=== PATIENT | female | born 1965 | race Caucasian/White ===

== ENCOUNTER → 2017-02-07 | Outpatient (CLI) | payer OTHER ==
[2016-02-28 16:00] VITALS: BP 143/80
[~2017-02-07] MED LIST: LISI-338 PO; LISI1TAB7 PO
--- NOTE | 2017-02-11 19:58 | KCIC ---
Bilateral digital screening mammograms: Reason for examination: Routine screening. Comparison is made to previous study dated 02/28/2009. The skin and nipples show no abnormalities. No abnormal lymph nodes are seen. The breast parenchyma is predominantly fatty. (Breast density: Category A.) There are no dominant masses, suspicious calcifications or architectural distortions. Impression: No evidence of malignancy. Recommend routine screening. BI-RADS Category 1: Negative. "Our facility is accredited by the [employer] Mammography Program." This patient's information has been entered into a reminder system for the patient to be notified with the results of her examination and a target date for the next mammogram. Electronically signed by: Kenia King MD (02/11/2017 7:55 PM)
== END | disposition home or self-care (01) ==
LOC: KCIC MAMMO 08:50
PROVIDERS: ATTEND Nurse Practitioner Family
DX: Z12.31 Encounter for screening mammogram for malignant neoplasm of breast (principal)
CPT/HCPCS: G0202; 77067

== ENCOUNTER → 2018-12-17 | Outpatient (CLI) | payer OTHER ==
[2016-02-28 16:00] VITALS: BP 143/80
--- NOTE | 2018-12-17 16:01 | KCIC ---
EXAM: Right calcaneus, 2 views. HISTORY: Nontraumatic pain. COMPARISON: None. FINDINGS: 2 views of the right calcaneus are obtained. There is no fracture, dislocation or subluxation. No lytic coarse chronic osseous lesion is seen. There is a tiny accessory ossicle along the lateral mid foot. IMPRESSION: No acute osseous finding. Electronically signed by: Vivienne Santamaria MD (12/17/2018 3:58 PM) [id number]
== END | disposition home or self-care (01) ==
LOC: KCIC 15:34
PROVIDERS: ATTEND Nurse Practitioner Family
DX: M79.671 Pain in right foot (principal)
CPT/HCPCS: 73650

== ENCOUNTER 2020-03-31 21:53 | Emergency (ER) | payer SELFPAY ==
[~2020-03-31 21:53] MED LIST changes: +LISI1TAB20 PO; -LISI1TAB7 PO
[2020-03-31 22:10] VITALS: BP 113/71
[2020-04-01] MEDS ORDERED: CETI10TA74 PO (13:38)
[2020-04-01] MEDS ORDERED: SIMV20TA18 PO (13:38)
== END 2020-03-31 23:30 | disposition left against medical advice (07) ==
LOC: ER 21:53
DX: R53.1 Weakness (principal); Z53.21 Procedure and treatment not carried out due to patient leaving prior to being seen by health care provider

== ENCOUNTER 2020-04-01 07:24 | Observation (INO) | payer SELFPAY ==
[~2020-04-01] VITALS: Ht 160 cm; Wt 60.9 kg
[2020-04-01] MEDS ORDERED: IV NORMAL SALINE 1000ML BAG 1,000 ML IV ONE (08:00)
[2020-04-01] MEDS ORDERED: ONDANSETRON PF 4 MG/2 ML VIAL. IVP ONE (08:00)
[2020-04-01 08:02] LABS: BASO # 0.1 x10^3/uL (0.0-0.2); BASO % 1 % (0-3); EOS % 0 % (0-3); HEMATOCRIT 39.7 % (36.0-47.0); HEMOGLOBIN 13.7 g/dL (12.0-15.5); LYMPH # 1.2 x10^3/uL (1.0-4.8); LYMPH % 10 % (24-48); MEAN CORPUSCULAR HEMOGLOBIN 33 pg (25-35); MEAN CORPUSCULAR HGB CONC 34 g/dL (31-37); MEAN CORPUSCULAR VOLUME 95 fL (79-100); MONO # 0.5 x10^3/uL (0.0-1.1); MONO % 4 % (0-9); NEUT # 10.4 x10^3/uL (1.8-7.7); NEUT % 86 % (31-73); PLATELET COUNT 275 x10^3/uL (140-400); RED BLOOD COUNT 4.16 x10^6/uL (3.50-5.40); RED CELL DISTRIBUTION WIDTH 14.4 % (11.5-14.5); WHITE BLOOD COUNT 12.1 x10^3/uL (4.0-11.0)
[2020-04-01 08:09] LABS: CALCIUM 10.1 mg/dL (8.5-10.1); CREATININE 1.2 mg/dL (0.6-1.0); GFR 46.5; POTASSIUM 4.4 mmol/L (3.5-5.1)
--- NOTE | 2020-04-01 08:21 | PHYS DOC ---
Past Medical History Past Medical History: Cancer, Hypertension, Other Additional Past Medical Histor: hyperlipidemia Past Surgical History: Cancer Surgery, Hysterectomy, Tonsillectomy Smoking Status: Current Every Day Smoker Alcohol Use: Heavy Drug Use: None General Adult EDM: Chief Complaint: DIZZY/LIGHT HEADED HPI: HPI: Patient is a 54-year-old female who presents the emergency room complaining of vomiting and lightheadedness. Patient states that this is happened previously and she believes that she just because she does not take very good care of herself. She has had low electrolytes before. She started feeling lightheaded 2 days ago. She did have a fall yesterday and has some mild back pain. Denies any other injury. She has been having vomiting since yesterday afternoon. She is not had any diarrhea, constipation, abdominal pain, chest pain, shortness of breath. She does drink most days but is unable to tell me exactly how much she typically drinks. Review of Systems: Review of Systems: General: Denies fever, chills, sweats, fatigue Eyes: Denies drainage, blurred vision, eye redness HENT: Denies rhinorrhea, sore throat, earache Respiratory: Denies cough, shortness of breath, wheezing Cardiac: Denies edema, palpitations, chest pain GI: Denies abdominal pain.reports nausea, vomiting MSK: Denies neck pain reports back pain Skin: Denies rash, jaundice Neuro: Denies headache, dizziness reports lightheadedness Psychiatric: Denies SI/HI Heart Score: Risk Factors: Risk Factors: DM, Current or recent (<one month) smoker, HTN, HLP, family history of CAD, obesity. Risk Scores: Score 0 - 3: 2.5% MACE over next 6 weeks - Discharge Home Score 4 - 6: 20.3% MACE over next 6 weeks - Admit for Clinical Observation Score 7 - 10: 72.7% MACE over next 6 weeks - Early Invasive Strategies Current Medications: Current Medications Medications (Trade) Dose Ordered Sig/Valencia Start Time Stop Time Status Last Admin Dose Admin Ondansetron HCl (Zofran) 4 mg 1X ONCE 04/01/20 08:00 04/01/20 08:01 DC Sodium Chloride 1,000 ml @ 1,000 mls/hr 1X ONCE 04/01/20 08:00 04/01/20 08:59 Allergies: Allergies: Allergies Coded Allergies Type Severity Reaction Last Updated Verified No Known Drug Allergies 08/12/13 No Physical Exam: PE: General: Awake, alert, NAD. Well Nourished, well hydrated. Cooperative HEENT: Atraumatic, EOMI, PERRL, airway patent, moist oral mucosa Neck: Supple, trachea midline Respiratory: CTA bilaterally, normal effort, no wheezing/crackles CV: Tachycardia, no murmur, cap refill <2 GI: Soft, nondistended, nontender, no masses MSK: No obvious deformities Skin: Warm, dry, intact Neuro: A&O x3, speech NL, sensory and motor grossly intact, no focal deficits Psych: Normal affect, normal mood, not suicidal or homicidal Current Patient Data: Labs: Laboratory Tests Test 04/01/20 07:50 White Blood Count 12.1 x10^3/uL (4.0-11.0) H Red Blood Count 4.16 x10^6/uL (3.50-5.40) Hemoglobin 13.7 g/dL (12.0-15.5) Hematocrit 39.7 % (36.0-47.0) Mean Corpuscular Volume 95 fL (79-100) Mean Corpuscular Hemoglobin 33 pg (25-35) Mean Corpuscular Hemoglobin Concent 34 g/dL (31-37) Red Cell Distribution Width 14.4 % (11.5-14.5) Platelet Count 275 x10^3/uL (140-400) Neutrophils (%) (Auto) 86 % (31-73) H Lymphocytes (%) (Auto) 10 % (24-48) L Monocytes (%) (Auto) 4 % (0-9) Eosinophils (%) (Auto) 0 % (0-3) Basophils (%) (Auto) 1 % (0-3) Neutrophils # (Auto) 10.4 x10^3/uL (1.8-7.7) H Lymphocytes # (Auto) 1.2 x10^3/uL (1.0-4.8) Monocytes # (Auto) 0.5 x10^3/uL (0.0-1.1) Eosinophils # (Auto) 0.0 x10^3/uL (0.0-0.7) Basophils # (Auto) 0.1 x10^3/uL (0.0-0.2) Platelet Estimate Pending Sodium Level 123 mmol/L (136-145) L Potassium Level 4.4 mmol/L (3.5-5.1) Chloride Level 83 mmol/L (98-107) L Carbon Dioxide Level 20 mmol/L (21-32) L Anion Gap 20 (6-14) H Blood Urea Nitrogen 16 mg/dL (7-20) Creatinine 1.2 mg/dL (0.6-1.0) H Estimated GFR (Cockcroft-Gault) 46.5 Glucose Level 98 mg/dL (70-99) Calcium Level 10.1 mg/dL (8.5-10.1) Troponin I Quantitative < 0.017 ng/mL (0.000-0.055) Lipase 263 U/L (73-393) Laboratory Tests 04/01/20 07:50 Laboratory Tests 04/01/20 07:50 Vital Signs: Vital Signs Date Time Temp Pulse Resp B/P (MAP) Pulse Ox O2 Delivery O2 Flow Rate FiO2 04/01/20 07:35 98.2 119 16 142/74 (96) 98 Room Air 98.2 EKG: EKG: [] Radiology/Procedures: Radiology/Procedures: [] Course & Med Decision Making: Course & Med Decision Making Pertinent Labs and Imaging studies reviewed. (See chart for details) Patient is a 54-year-old female who presents to the emergency room with dizziness and vomiting. She has a history of this and it has been due to electrolyte issues in the past. Patient was started on fluids. CBC BMP, LFTs, magnesium, UA were ordered. Patient has multiple electrolyte abnormalities. EKG does not show any significant changes at this time. She will be admitted to the hospitalist for further care and evaluation. Work up was reviewed and was remarkable for hyponatremia, hypokalemia, hypomagnesia, transaminitis. At this time, patient would benefit from further work up and management. Patient is not stable for discharge at this time. Results, vitals, interventions, and plan was discussed with the patient. Patient was given opportunity to ask any questions and are in agreement with plan for admission. Patient was discussed with admitting physician and bridge admission orders were placed. Further care will be managed by inpatient team. Kemon Disclaimer: Sofya Disclaimer: This electronic medical record was generated, in whole or in part, using a voice recognition dictation system. Departure Departure Impression: Primary Impression: Hyponatremia Additional Impressions: Hypomagnesemia Hypochloremia Alcohol abuse Vomiting Tachycardia Disposition: ADMITTED INPATIENT Condition: IMPROVED Referrals: FELIX GIL APRN (PCP) Justicifation of Admission Dx: Justifications for Admission: Justification of Admission Dx: Yes LEOLA LARA MD Apr 01, 2020 08:21
[2020-04-01 08:48] LABS: ALBUMIN 3.9 g/dL (3.4-5.0); DIRECT BILIRUBIN 0.4 mg/dL (0.0-0.2); MAGNESIUM 1.3 mg/dL (1.8-2.4); TOTAL BILIRUBIN 0.8 mg/dL (0.2-1.0); TOTAL PROTEIN 8.5 g/dL (6.4-8.2)
--- NOTE | 2020-04-01 08:50 | RAD ---
Chest AP portable at 0829: Reason for examination: Dizzy. Comparison is made to previous study dated 02/27/2016. The heart size is normal. Mediastinum is unremarkable. Lung leyva are clear. No acute bony abnormalities are seen. Impression: No acute cardiopulmonary disease. Electronically signed by: Kenia King MD (04/01/2020 8:47 AM) [id number]
--- NOTE | 2020-04-01 10:01 | PDOC1 ---
History and Physical Date of Admission Date of Admission DATE: 04/01/20 TIME: 10:00 Identification/Chief Complaint Chief Complaint seen in er with alcohol withdrawal, dizziness , and electrolyte imbalance 54-year-old female who presents the emergency room complaining of vomiting and lightheadedness. Patient states that this is happened previously and she believes that she just because she does not take very good care of herself. started feeling lightheaded 2 days ago. fall yesterday and has some mild back pain. Denies any other injury. She has been having vomiting since yesterday She is not had any diarrhea, constipation, abdominal pain, chest pain, shortness of breath. She does drink most days heavily x 2 weeks due to a " break-up", usually 2 shots of whisky a day Past Medical History Past Medical History Past Medical History Past Medical History: Cancer, Hypertension, Other Additional Past Medical Histor: hyperlipidemia Past Surgical History: Cancer Surgery, Hysterectomy, Tonsillectomy Smoking Status: Current Every Day Smoker Alcohol Use: Heavy Drug Use: None FHX COPD Cardiovascular: HTN, Hyperlipidemia Psych: Depression Renal/: No pertinent hx Endocrine: No pertinent hx Past Surgical History Past Surgical History: Other Family History Family History: No Significant, High Cholestrol, Hypertension Social History Smoke: <1 pack per day ALCOHOL: heavy Drugs: None Current Problem List Problem List Problems Medical Problems: (1) Alcohol abuse Status: Acute (2) Hypochloremia Status: Acute (3) Hypomagnesemia Status: Acute (4) Hyponatremia Status: Acute (5) Tachycardia Status: Acute (6) Vomiting Status: Acute Current Medications Current Medications Current Medications Ondansetron HCl (Zofran) 4 mg 1X ONCE IVP Last administered on 04/01/20at 08:19; Start 04/01/20 at 08:00; Stop 04/01/20 at 08:01; Status DC Sodium Chloride 1,000 ml @ 1,000 mls/hr 1X ONCE IV Last administered on 04/01/20at 08:19; Start 04/01/20 at 08:00; Stop 04/01/20 at 08:59; Status DC Active Scripts Active Lisinopril 5 Mg Tablet 1 Tab PO DAILY Allergies Allergies: Coded Allergies: prednisone (Verified Adverse Reaction, Intermediate, AGITATION, 04/01/20) 'it like attacks my bones or something' ROS Review of System Review of Systems: Review of Systems: General: Denies fever, chills, sweats, fatigue Eyes: Denies drainage, blurred vision, eye redness HENT: Denies rhinorrhea, sore throat, earache Respiratory: Denies cough, shortness of breath, wheezing Cardiac: Denies edema, palpitations, chest pain GI: Denies abdominal pain.reports nausea, vomiting MSK: Denies neck pain reports back pain Skin: Denies rash, jaundice Neuro: Denies headache, dizziness reports lightheadedness Psychiatric: Denies SI/HI 14 pt ros otherwise neg General: No: Chills, Night Sweats, Fatigue, Malaise, Appetite, Other PSYCHOLOGICAL ROS: YES: Anxiety, Depression, Irritablity Eyes: No Blurry vision, No Decreased vision, No Double vision, No Dry eyes, No Excessive tearing, No Eye Pain, No Itchy Eyes, No Loss of vision, No Photophobia, No Scotomata, No Uses contacts, No Uses glasses, No Other ALLERGY AND IMMUNOLOGY: No: Hives, Insect Bite Sensitivity, Itchy/Watery Eyes, Nasal Congestion, Post Nasal Drip, Seasonal Allergies, Other Hematological and Lymphatic: No: Bleeding Problems, Blood Clots, Blood Transfusions, Brusing, Night Sweats, Pallor, Swollen Lymph Nodes, Other Cardiovascular: No Chest Pain, No Palpitations, No Orthopnea, No Paroxysmal Noc. Dyspnea, No Edema, No Lt Headedness, No Other Gastrointestinal: Yes Nausea, Yes Vomiting Musculoskeletal: Yes Gait Disturbance Neurological: Yes Gait Disturbance Skin: No Dry Skin, No Eczema, No Hair Changes, No Lumps, No Mole Changes, No Mottling, No Nail Changes, No Pruritus, No Rash, No Skin Lesion Changes, No Other, No Acne Physical Exam Physical Exam PE: General: Awake, alert, NAD. Well Nourished, well hydrated. Cooperative HEENT: Atraumatic, EOMI, PERRL, airway patent, moist oral mucosa Neck: Supple, trachea midline Respiratory: CTA bilaterally, normal effort, no wheezing/crackles CV: Tachycardia, no murmur, cap refill <2 GI: Soft, nondistended, nontender, no masses MSK: No obvious deformities Skin: Warm, dry, intact Neuro: A&O x3, speech NL, sensory and motor grossly intact, no focal deficits Psych: Normal affect, normal mood, not suicidal or homicidal General: Oriented X3, Cooperative, No acute distress HEENT: Atraumatic, PERRLA, EOMI, Mucous membr. moist/pink Lungs: Clear to auscultation, Normal air movement Heart: RRR Breasts: Not examined Abdomen: Normal bowel sounds, Soft, No tenderness Rectal Exam: not examined Extremities: No cyanosis, No edema Skin: No significant lesion Neuro: Normal speech, Normal tone, Cranial nerves 3-12 NL, Reflexes 2+ Psych/Mental Status: Mental status NL, Mood NL Vitals Vitals Vital Signs Date Time Temp Pulse Resp B/P (MAP) Pulse Ox O2 Delivery O2 Flow Rate FiO2 04/01/20 09:00 110 18 99 04/01/20 07:35 98.2 142/74 (96) Room Air 98.2 Labs Labs Laboratory Tests Test 04/01/20 07:50 White Blood Count 12.1 x10^3/uL (4.0-11.0) Red Blood Count 4.16 x10^6/uL (3.50-5.40) Hemoglobin 13.7 g/dL (12.0-15.5) Hematocrit 39.7 % (36.0-47.0) Mean Corpuscular Volume 95 fL (79-100) Mean Corpuscular Hemoglobin 33 pg (25-35) Mean Corpuscular Hemoglobin Concent 34 g/dL (31-37) Red Cell Distribution Width 14.4 % (11.5-14.5) Platelet Count 275 x10^3/uL (140-400) Neutrophils (%) (Auto) 86 % (31-73) Lymphocytes (%) (Auto) 10 % (24-48) Monocytes (%) (Auto) 4 % (0-9) Eosinophils (%) (Auto) 0 % (0-3) Basophils (%) (Auto) 1 % (0-3) Neutrophils # (Auto) 10.4 x10^3/uL (1.8-7.7) Lymphocytes # (Auto) 1.2 x10^3/uL (1.0-4.8) Monocytes # (Auto) 0.5 x10^3/uL (0.0-1.1) Eosinophils # (Auto) 0.0 x10^3/uL (0.0-0.7) Basophils # (Auto) 0.1 x10^3/uL (0.0-0.2) Sodium Level 123 mmol/L (136-145) Potassium Level 4.4 mmol/L (3.5-5.1) Chloride Level 83 mmol/L (98-107) Carbon Dioxide Level 20 mmol/L (21-32) Anion Gap 20 (6-14) Blood Urea Nitrogen 16 mg/dL (7-20) Creatinine 1.2 mg/dL (0.6-1.0) Estimated GFR (Cockcroft-Gault) 46.5 Glucose Level 98 mg/dL (70-99) Calcium Level 10.1 mg/dL (8.5-10.1) Magnesium Level 1.3 mg/dL (1.8-2.4) Total Bilirubin 0.8 mg/dL (0.2-1.0) Direct Bilirubin 0.4 mg/dL (0.0-0.2) Aspartate Amino Transf (AST/SGOT) 122 U/L (15-37) Alanine Aminotransferase (ALT/SGPT) 112 U/L (14-59) Alkaline Phosphatase 117 U/L (46-116) Troponin I Quantitative < 0.017 ng/mL (0.000-0.055) NF-Aaf-K-Type Natriuretic Peptide 99 pg/mL (0-124) Total Protein 8.5 g/dL (6.4-8.2) Albumin 3.9 g/dL (3.4-5.0) Lipase 263 U/L (73-393) Laboratory Tests Test 04/01/20 07:50 White Blood Count 12.1 x10^3/uL (4.0-11.0) Red Blood Count 4.16 x10^6/uL (3.50-5.40) Hemoglobin 13.7 g/dL (12.0-15.5) Hematocrit 39.7 % (36.0-47.0) Mean Corpuscular Volume 95 fL (79-100) Mean Corpuscular Hemoglobin 33 pg (25-35) Mean Corpuscular Hemoglobin Concent 34 g/dL (31-37) Red Cell Distribution Width 14.4 % (11.5-14.5) Platelet Count 275 x10^3/uL (140-400) Neutrophils (%) (Auto) 86 % (31-73) Lymphocytes (%) (Auto) 10 % (24-48) Monocytes (%) (Auto) 4 % (0-9) Eosinophils (%) (Auto) 0 % (0-3) Basophils (%) (Auto) 1 % (0-3) Neutrophils # (Auto) 10.4 x10^3/uL (1.8-7.7) Lymphocytes # (Auto) 1.2 x10^3/uL (1.0-4.8) Monocytes # (Auto) 0.5 x10^3/uL (0.0-1.1) Eosinophils # (Auto) 0.0 x10^3/uL (0.0-0.7) Basophils # (Auto) 0.1 x10^3/uL (0.0-0.2) Sodium Level 123 mmol/L (136-145) Potassium Level 4.4 mmol/L (3.5-5.1) Chloride Level 83 mmol/L (98-107) Carbon Dioxide Level 20 mmol/L (21-32) Anion Gap 20 (6-14) Blood Urea Nitrogen 16 mg/dL (7-20) Creatinine 1.2 mg/dL (0.6-1.0) Estimated GFR (Cockcroft-Gault) 46.5 Glucose Level 98 mg/dL (70-99) Calcium Level 10.1 mg/dL (8.5-10.1) Magnesium Level 1.3 mg/dL (1.8-2.4) Total Bilirubin 0.8 mg/dL (0.2-1.0) Direct Bilirubin 0.4 mg/dL (0.0-0.2) Aspartate Amino Transf (AST/SGOT) 122 U/L (15-37) Alanine Aminotransferase (ALT/SGPT) 112 U/L (14-59) Alkaline Phosphatase 117 U/L (46-116) Troponin I Quantitative < 0.017 ng/mL (0.000-0.055) DZ-Raf-J-Type Natriuretic Peptide 99 pg/mL (0-124) Total Protein 8.5 g/dL (6.4-8.2) Albumin 3.9 g/dL (3.4-5.0) Lipase 263 U/L (73-393) Images Images Chest AP portable at 0829: Reason for examination: Dizzy. Comparison is made to previous study dated 02/27/2016. The heart size is normal. Mediastinum is unremarkable. Lung leyva are clear. No acute bony abnormalities are seen. Impression: No acute cardiopulmonary disease. Electronically signed by: Kenia Carranza MD (04/01/2020 8:47 AM) [id number] DICTATED and SIGNED BY: KENIA CARRANZA MD DATE: 04/01/20 0847 VTE Prophylaxis Ordered VTE Prophylaxis Devices: Yes VTE Pharmacological Prophylaxi: Yes Assessment/Plan Assessment/Plan impression severe alcohol abuse HYPOVOLEMIA HYPONATREMIA HYPOTENSION ROSELINE TRANSAMINITIS sec etoh abuse dizziness TOBACCO ABUSE DISORDER PLAN ADMIT iv fluid support CIWA PRECAUTIONS DRUG SCREEN cvc bed ct head PT/OT DVT PROPHYLAXIS PO PROTONIX Justicifation of Admission Dx: Justifications for Admission: Justification of Admission Dx: Yes JENNIFFER GOVEA MD Apr 01, 2020 10:01
[2020-04-01] MEDS: IV NORMAL SALINE 1000ML BAG 1,000 ML IV SCH ×2 (10:03→20:03)
[2020-04-01] MEDS ORDERED: 0.9 % SODIUM CHLORIDE 10 ML DISP.SYRIN. IV PRN (10:15)
[2020-04-01] MEDS ORDERED: DOCUSATE SODIUM 100 MG CAPSULE. PO PRN (10:15)
[2020-04-01] MEDS ORDERED: SODIUM PHOSPHATES 19/7GM 133 ML ENEMA. PR PRN (10:15)
[2020-04-01] MEDS ORDERED: ACETAMINOPHEN 325 MG TABLET. PO PRN (10:15)
[2020-04-01] MEDS ORDERED: MAG HYDROX/ALUMINUM HYD/SIMETH 30 ML ORAL.SUSP PO PRN (10:15)
[2020-04-01] MEDS ORDERED: ONDANSETRON PF 4 MG/2 ML VIAL. IV PRN (10:15)
[2020-04-01] MEDS ORDERED: cloNIDine HCL 0.1 MG TABLET PO PRN ×2 (10:15→11:30)
[2020-04-01] MEDS ORDERED: LORazepam 0.5 MG TABLET PO PRN (10:15)
[2020-04-01] MEDS ORDERED: guaiFENesin ORAL 200 MG/10 ML LIQUID. PO PRN (10:15)
[2020-04-01 10:24] LABS: BILIRUBIN,URINE NEGATIVE (NEG); CLARITY,URINE CLEAR; COLOR,URINE YELLOW; NITRITE,URINE NEGATIVE (NEG); PROTEIN,URINE NEGATIVE (NEG-TRACE); UROBILINOGEN,URINE 0.2 mg/dL (0.2 mg/dL)
[2020-04-01 10:26] LABS: SQUAMOUS EPITHELIAL CELL,UR OCC /LPF
[2020-04-01 10:27] VITALS: BP 132/72
[2020-04-01 10:27] LABS: BACTERIA,URINE 0 /HPF (0-FEW); HYALINE CASTS, URINE OCCASIONAL /HPF; RBC,URINE 0 /HPF (0-2); WBC,URINE 0 /HPF (0-4)
[2020-04-01] MEDS ORDERED: ALBUTEROL SULFATE 2.5 MG/3 ML NEBU. NEB PRN (10:30)
[2020-04-01] MEDS ORDERED: MULTIVIT INFUSN,ADULT 4,VIT K 10 ML, THIAMINE INJ 100 MG, FOLIC ACID INJ 1 MG in IV NOR... IV ONE (11:00)
[2020-04-01] MEDS ORDERED: HALOPERIDOL LACTATE 5 MG/ML VIAL. IVP PRN (11:30)
[2020-04-01] MEDS ORDERED: POTASSIUM BICARB 20 MEQ EFFERVESCENT TABLET. PO SCH (11:30)
[2020-04-01] MEDS ORDERED: LORazepam 1 MG TABLET PO PRN ×2 (11:30)
[2020-04-01] MEDS ORDERED: diphenhydrAMINE 50 MG/ML VIAL IVP PRN (11:30)
[2020-04-01] MEDS ORDERED: POTASSIUM CHLORIDE 10MEQ 100 ML IV SCH ×2 (11:30)
[2020-04-01] MEDS ORDERED: POTASSIUM BICARB 20 MEQ EFFERVESCENT TABLET. FT ONE (11:30)
[2020-04-01 11:34] LABS: % BANDS 26 % (0-9); % LYMPHS 9 % (24-48); % MONOS 3 % (0-10); % SEGS 62 % (35-66)
[2020-04-01 11:36] LABS: PLT ESTIMATE ADEQUATE (ADEQUATE)
[2020-04-01] MEDS ORDERED: ELECTROLYTE (NON-ICU) PROTOCOL MC PRN (11:45)
[2020-04-01] MEDS ORDERED: MAGNESIUM SULFATE 2GM 50 ML IV ONE (12:00)
[2020-04-01] MEDS ORDERED: IPRATRPIUM/ALBUTEROL 0.5/2.5MG 3 ML NEBU. NEB SCH (12:00)
[2020-04-01] MEDS: ENOXAPARIN 40 MG/0.4 ML SYRINGE. SQ SCH (12:17)
[2020-04-01 12:57] LABS: BARBITURATES NEG (NEG); BENZODIAZEPINES NEG (NEG); CANNABINOIDS NEG (NEG); COCAINE NEG (NEG); METHADONE NEG (NEG); OPIATES NEG (NEG); PHENCYCLIDINE NEG (NEG)
[2020-04-01 13:07] LABS: AMPHETAMINE/METHAMPHETAMINE NEG (NEG)
[2020-04-01] MEDS ORDERED: SIMV20TA18 PO (13:38)
[2020-04-01] MEDS ORDERED: CETI10TA24 PO (13:38)
--- NOTE | 2020-04-01 14:23 | EKG ---
[facility] [address] [place] [address] Test Date: 2020-04-01 Test Time: 07:49:36 Pat Name: EMILIO FARRELL Department: Room: Gender: F Financial Health Counselor: LILLY : 1965 Requested By: LEOLA LARA Order Number: [id number] Reading MD: Measurements Intervals [place] Rate: 119 P: 34 AK: 150 QRS: 18 QRSD: 76 T: 46 QT: 304 QTc: 434 Interpretive Statements SINUS TACHYCARDIA OTHERWISE NORMAL ECG RI6.01 No previous ECG available for comparison
[2020-04-01 15:00] VITALS: BP 136/71
[2020-04-01 16:41] LABS: CALCIUM 9.4 mg/dL (8.5-10.1); CREATININE 1.2 mg/dL (0.6-1.0); GFR 46.5; POTASSIUM 4.3 mmol/L (3.5-5.1)
--- NOTE | 2020-04-01 18:06 | RAD ---
CT HEAD WO CONTRAST Date: 04/01/2020 5:11 PM Clinical Indication: Reason: DIZZINESS / Spl. Instructions: / History: Comparison: None. Technique: 5 mm axial tomographic images were obtained of the head without contrast. These were viewed on brain and bone windows. One or more of the following dose reduction techniques were utilized: Automated exposure control (AEC), Adjustment of mA and/or kV according to patient size, Use of iterative reconstruction technique such as ASiR, CT scan done according to ALARA and image gently/image wisely Findings: The brain parenchyma is normal in attenuation. No intra- or extra-axial mass or fluid collection. No acute hemorrhage. The ventricles are normal in size, shape, and morphology. The aguiar-white matter junction is normal. The subarachnoid cisterns are patent. Atherosclerosis of the cavernous and paraclinoid ICAs. The visualized paranasal sinuses are normal. The visualized portions of the orbits and globes are normal. The mastoid air cells are clear. The secondary spanish teacher topogram shows no lytic lesion or fracture. Impression: No acute intracranial process. Electronically signed by: Jake Escamilla MD (04/01/2020 6:03 PM) [facility]
[2020-04-01 19:05] VITALS: BP 139/72
[2020-04-01] MEDS ORDERED: POTASSIUM & SODIUM PHOSPHATES PACKET. PO SCH (21:00)
[2020-04-01 23:30] VITALS: BP 134/74
[2020-04-02] MEDS: IV NORMAL SALINE 1000ML BAG 1,000 ML IV SCH ×2 (02:04→11:49)
[2020-04-02 03:30] VITALS: BP 134/80
[2020-04-02 07:00] VITALS: BP 136/69
[2020-04-02 08:55] LABS: CALCIUM 8.3 mg/dL (8.5-10.1); CREATININE 1.1 mg/dL (0.6-1.0); GFR 51.4; POTASSIUM 3.6 mmol/L (3.5-5.1)
[2020-04-02] MEDS ORDERED: THIAMINE 100 MG TABLET. PO SCH (09:00)
[2020-04-02] MEDS ORDERED: FOLIC ACID 1 MG TABLET. PO SCH (09:00)
[2020-04-02] MEDS: ENOXAPARIN 40 MG/0.4 ML SYRINGE. SQ SCH (11:00)
[2020-04-02 11:16] VITALS: BP 139/59
[2020-04-02] MEDS ORDERED: LISI1TAB37 PO (12:07)
[2020-04-02] MEDS ORDERED: LISI-334 PO (12:07)
--- NOTE | 2020-04-02 12:42 | PDOC ---
[employer] PROGRESS NOTE Date of Service DOS: DATE: 04/02/20 TIME: 12:34 Chief Complaint Chief Complaint EtOH withdrawl Hyponatremia Hypomagnesemia Transaminitis History of Present Illness History of Present Illness 04/02/2020 Patient seen and examined in the Cardiac floor Sitting in bed, NAD Discussed EtOH cessation Discussed with RN and patient's sister Chart reviewed Vitals/I&O Vitals/I&O: Vital Signs Date Time Temp Pulse Resp B/P (MAP) Pulse Ox O2 Delivery O2 Flow Rate FiO2 04/02/20 11:16 98.6 97 18 139/59 (85) 99 Room Air 98.6 I & O 04/01/20 04/01/20 04/02/20 14:59 22:59 06:59 Intake Total 1000 ml 970 ml 680 ml Output Total 200 ml 900 ml Balance 1000 ml 770 ml -220 ml Physical Exam General: Alert, Oriented X3, Cooperative, No acute distress Heart: Regular rate, Normal S1, Normal S2 Lungs: Clear Abdomen: Normal bowel sounds, Soft, No tenderness Extremities: No cyanosis, No edema Skin: No significant lesion Labs Labs: Laboratory Tests Test 04/01/20 16:20 04/02/20 04:30 Sodium Level 123 mmol/L (136-145) 125 mmol/L (136-145) Potassium Level 4.3 mmol/L (3.5-5.1) 3.6 mmol/L (3.5-5.1) Chloride Level 87 mmol/L (98-107) 89 mmol/L (98-107) Carbon Dioxide Level 28 mmol/L (21-32) 24 mmol/L (21-32) Anion Gap 8 (6-14) 12 (6-14) Blood Urea Nitrogen 14 mg/dL (7-20) 12 mg/dL (7-20) Creatinine 1.2 mg/dL (0.6-1.0) 1.1 mg/dL (0.6-1.0) Estimated GFR (Cockcroft-Gault) 46.5 51.4 Glucose Level 133 mg/dL (70-99) 158 mg/dL (70-99) Calcium Level 9.4 mg/dL (8.5-10.1) 8.3 mg/dL (8.5-10.1) Magnesium Level 2.3 mg/dL (1.8-2.4) Phosphorus Level 2.4 mg/dL (2.6-4.7) Review of Systems Review of Systems: Pertinent as per HPI, otherwise 10 point review of systems is negative. Assessment and Plan Assessmemt and Plan Problems Medical Problems: (1) Alcohol abuse Status: Acute (2) Hypochloremia Status: Acute (3) Hypomagnesemia Status: Acute (4) Hyponatremia Status: Acute (5) Tachycardia Status: Acute (6) Vomiting Status: Acute ASSESSMENT EtOH withdrawl Hyponatremia Hypomagnesemia Transaminitis PLAN Cardiac monitoring CIWA protocol Electrolyte replacement Home meds PT/OT DVT prophylaxis Full code Hope to discharge this afternoon if sodium improves Comment Review of Relevant I have reviewed the following items jacquie (where applicable) has been applied. Medications: Current Medications Medications (Trade) Dose Ordered Sig/Valencia Route PRN Reason Start Time Stop Time Status Last Admin Dose Admin Folic Acid (Folic Acid) 1 mg DAILY PO 04/02/20 09:00 04/02/20 08:25 Thiamine Mononitrate (Vitamin B-1) 100 mg DAILY PO 04/02/20 09:00 04/02/20 08:25 Justicifation of Admission Dx: Justifications for Admission: Justification of Admission Dx: Yes WILLIE ROSE III DO Apr 02, 2020 12:42
[2020-04-02] MEDS ORDERED: MAGN400T5 PO (12:50)
[2020-04-02 14:41] VITALS: BP 145/70
[2020-04-02 15:31] LABS: CALCIUM 8.2 mg/dL (8.5-10.1); CREATININE 0.9 mg/dL (0.6-1.0); GFR 64.8; POTASSIUM 3.7 mmol/L (3.5-5.1)
--- NOTE | 2020-04-02 16:01 | NUR ---
Discharge: Spoke with Dr. Ca and reported recent Na 125. Patient requesting to discharge. Dr. Ca agreed. Reviewed medications, follow-up, hypokalemia, hypomagnesium, dizziness, fall precautions, ETOH withdraw, ect. Patient verbalized understanding. All belongings with patient. Will continue to monitor. Patient waiting on her ride.
== END 2020-04-02 16:25 | disposition home or self-care (01) ==
LOC: ER 07:24 → 2 SOUTH 09:21
PROVIDERS: ADMIT Family Medicine; ATTEND Family Medicine
DX: E87.1 Hypo-osmolality and hyponatremia (principal); E87.8 Other disorders of electrolyte and fluid balance, not elsewhere classified; E83.42 Hypomagnesemia; F10.239 Alcohol dependence with withdrawal, unspecified; R00.0 Tachycardia, unspecified; E86.1 Hypovolemia; F17.210 Nicotine dependence, cigarettes, uncomplicated; I10 Essential (primary) hypertension; N17.9 Acute kidney failure, unspecified; E78.5 Hyperlipidemia, unspecified; Z90.710 Acquired absence of both cervix and uterus; W19.XXXA Unspecified fall, initial encounter; Y90.9 Presence of alcohol in blood, level not specified
CPT/HCPCS: 36415; 70450; 71045; 80048; 80076; 80307; 81001; 83690; 83735; 83880; 84100; 84484; 85007; 85025; 93005; 96361; 96365; 96366; 96368; 96372; 96375; 99285; G0378; G0480; J1650; J2405; J3411; J3475; J3490; J7030; G0379

== ENCOUNTER 2021-06-07 10:18 | Emergency (ER) | payer OTHER ==
[~2021-06-07] VITALS: Ht 160 cm; Wt 61.4 kg
[~2021-06-07 10:18] MED LIST changes: +CETI10TA74 PO; -LISI-338 PO; -LISI1TAB20 PO; +LISI1TAB37 PO; +LISI1TAB39 PO; +LISI20TA18 PO; +LISI5TAB15 PO; +MAGN400T48 PO; +SIMV20TA18 PO
[2021-06-07] MEDS ORDERED: IV NORMAL SALINE 1000ML BAG 1,000 ML IV ONE (10:45)
[2021-06-07] MEDS ORDERED: MULTIVIT INFUSN,ADULT 4,VIT K 10 ML, THIAMINE INJ 100 MG, FOLIC ACID INJ 1 MG in IV NOR... IV ONE (10:45)
[2021-06-07 11:05] LABS: BASO # 0.1 x10^3/uL (0.0-0.2); BASO % 1 % (0-3); EOS # 0.1 x10^3/uL (0.0-0.7); EOS % 1 % (0-3); HEMATOCRIT 43.2 % (36.0-47.0); HEMOGLOBIN 14.4 g/dL (12.0-15.5); LYMPH # 2.2 x10^3/uL (1.0-4.8); LYMPH % 36 % (24-48); MEAN CORPUSCULAR HEMOGLOBIN 33 pg (25-35); MEAN CORPUSCULAR HGB CONC 33 g/dL (31-37); MEAN CORPUSCULAR VOLUME 99 fL (79-100); MONO # 0.5 x10^3/uL (0.0-1.1); MONO % 8 % (0-9); NEUT # 3.3 x10^3/uL (1.8-7.7); NEUT % 55 % (31-73); PLATELET COUNT 357 x10^3/uL (140-400); RED BLOOD COUNT 4.38 x10^6/uL (3.50-5.40); RED CELL DISTRIBUTION WIDTH 14.8 % (11.5-14.5); WHITE BLOOD COUNT 6.1 x10^3/uL (4.0-11.0)
[2021-06-07 11:07] LABS: BILIRUBIN,URINE NEGATIVE (NEG); CLARITY,URINE CLEAR; COLOR,URINE YELLOW; NITRITE,URINE NEGATIVE (NEG); PROTEIN,URINE NEGATIVE (NEG-TRACE); UROBILINOGEN,URINE 0.2 mg/dL (0.2 mg/dL)
--- NOTE | 2021-06-07 11:07 | RAD ---
AP chest. HISTORY: Short of air AP view was taken of the chest. Lungs are free of infiltrates. Heart is normal in size. There is no p leural effusion. IMPRESSION: 1. No acute chest disease. Electronically signed by: Tony Ying MD (06/07/2021 11:04 AM) [id number]
--- NOTE | 2021-06-07 11:07 | PHYS DOC ---
Past Medical History Past Medical History: Cancer, Hypertension, Other Additional Past Medical Histor: OVARIAN CANCER Past Surgical History: Hysterectomy Smoking Status: Current Every Day Smoker Alcohol Use: Heavy Drug Use: None General Adult EDM: Chief Complaint: OTHER COMPLAINTS HPI: HPI: Patient is a 55 year old female who presents with states last 4 days she has been drinking whiskey but cannot tell me exactly how much she has had. She states she does not think she is had a whole bottle a day. Patient states that she does not normally drink every single day she is goes through times where she cannot deal with her sadness and depression. She states 2 years ago her and she was "strong for everybody else and never really got to grieve." She states that she is "not suicidal or have a plan or danger to myself but if if I were to I would be okay with that." She states that she deals with things internally and is not a good talker. She states that she does not want help and does not want to talk to PAT team. She states she does not need resources. She states she would not use them. She states yesterday that she did have a headache and was dizzy but not today. She states she just does not feel very well. She states she is probably dehydrated. She has a history of hypertension, high cholesterol, Covid October 2020, ovarian cancer with a hysterectomy and smoking. She states she has chronic shortness of breath since the Covid. She did not take her hypertensive medication today. Denies any pain, chest pain, new severity, headache, dizziness, vision change, numbness or tingling, focal weakness, nausea, vomiting, diarrhea, abdominal pain, back pain, urinary symptoms. Review of Systems: Review of Systems: Constitutional: Denies fever or chills. [] Eyes: Denies change in visual acuity. [] HENT: Denies nasal congestion or sore throat. [] Respiratory: Denies cough or shortness of breath. [] Cardiovascular: Denies chest pain or edema. [] GI: Denies abdominal pain, nausea, vomiting, bloody stools or diarrhea. [] : Denies dysuria. [] Musculoskeletal: Denies back pain or joint pain. [] Integument: Denies rash. [] Neurologic: + yesterday headache, +yesterday dizziness, denies focal weakness or sensory changes. [] Endocrine: Denies polyuria or polydipsia. [] Lymphatic: Denies swollen glands. [] Psychiatric: +depression or +anxiety. +alcoholism[] Heart Score: C/O Chest Pain: No HEART Score for Chest Pain: HEART Score for Chest Pain Response (Comments) Value History Slighlty/Non-Suspicious 0 ECG Normal 0 Age >45 - < 65 1 Risk Factors 1 or 2 Risk Factors 1 Troponin < Normal Limit 0 Total 2 Risk Factors: Risk Factors: DM, Current or recent (<one month) smoker, HTN, HLP, family history of CAD, obesity. Risk Scores: Score 0 - 3: 2.5% MACE over next 6 weeks - Discharge Home Score 4 - 6: 20.3% MACE over next 6 weeks - Admit for Clinical Observation Score 7 - 10: 72.7% MACE over next 6 weeks - Early Invasive Strategies Current Medications: Current Medications Medications (Trade) Dose Ordered Sig/Valencia Start Time Stop Time Status Last Admin Dose Admin Multivitamins 10 ml/Thiamine HCl 100 mg/Folic Acid 1 mg/Sodium Chloride 1,011.2 ml @ 1,000.088 mls/hr 1X ONCE 06/07/21 10:45 06/07/21 11:45 Sodium Chloride 1,000 ml @ 1,000 mls/hr 1X ONCE 06/07/21 10:45 06/07/21 11:44 Allergies: Allergies: Allergies Coded Allergies Type Severity Reaction Last Updated Verified prednisone Adverse Reaction Intermediate AGITATION 04/01/20 Yes Physical Exam: PE: Constitutional: Well developed, well nourished, no acute distress, non-toxic appearance. [] HENT: Normocephalic, atraumatic, bilateral external ears normal, oropharynx moist, no oral exudates, nose normal. [] Eyes: PERRLA, EOMI, conjunctiva normal, no discharge. [] Neck: Normal range of motion, no tenderness, supple, no stridor. [] Cardiovascular:Heart rate regular rhythm, no murmur [] Lungs & Thorax: Bilateral breath sounds clear to auscultation [] Abdomen: Bowel sounds normal, soft, no tenderness, no masses, no pulsatile masses. [] Skin: Warm, dry, no erythema, no rash. [] Back: No tenderness, no CVA tenderness. [] Extremities: No tenderness, no cyanosis, no clubbing, ROM intact, no edema. [] Neurologic: Alert and oriented X 3, normal motor function, normal sensory function, no focal deficits noted. [] Psychologic: Affect normal, judgement normal, mood normal. Tearful[] Current Patient Data: Vital Signs: Vital Signs Date Time Temp Pulse Resp B/P (MAP) Pulse Ox O2 Delivery O2 Flow Rate FiO2 06/07/21 10:45 98.5 101 16 142/98 (113) 98 Room Air 98.5 EKG: EK and read by Dr. Ta is sinus rhythm and no STEMI Radiology/Procedures: Radiology/Procedures: [] Impression: [facility] [address] [place] [address] IMAGING REPORT Signed PATIENT: EMILIO FARRELL ACCOUNT: [id number] : 1965 LOCATION: ER AGE: 55 SEX: F EXAM STATUS: REG ER ORD. PHYSICIAN: BILL CASTANEDA APRN REASON: soa PROCEDURE: PORTABLE CHEST 1V AP chest. HISTORY: Short of air AP view was taken of the chest. Lungs are free of infiltrates. Heart is normal in size. There is no pleural effusion. IMPRESSION: 1. No acute chest disease. Electronically signed by: Tony Ying MD (06/07/2021 11:04 AM) [id number] DICTATED and SIGNED BY: TONY YING MD DATE: 06/07/21 [id number] 0 Course & Med Decision Making: Course & Med Decision Making Pertinent Labs and Imaging studies reviewed. (See chart for details) See HPI. Alert and oriented x4. Ambulatory steady gait. Speaks in full clear sentences. Calm and cooperative but slightly tearful. Sister is at bedside and she states that her sister is her best friend. No extremity edema. Lungs are clear all station all lobes. PERRLA. Abdomen soft and nontender. Afebrile. Patient's magnesium and potassium is slightly low. I have replaced both. Patie nt is gotten 1 L of normal saline and a banana bag. Blood work otherwise unremarkable. Exam unremarkable. I will give her RSI resources. Patient is stable and continues to have no complaints. Alert and oriented and ambulatory with a steady gait. Patient is going home with her sister. [] Sofya Disclaimer: Draglisa Disclaimer: This electronic medical record was generated, in whole or in part, using a voice recognition dictation system. Departure Departure Impression: Primary Impression: Hypokalemia Additional Impressions: Hypomagnesemia Alcohol intoxication Qualified Codes: F10.920 - Alcohol use, unspecified with intoxication, uncomplicated Disposition: 01 HOME / SELF CARE / HOMELESS Condition: STABLE Referrals: FELIX GIL APRN (PCP) Patient Instructions: Alcohol Intoxication, Depression, Adult, Grief Reaction, Hypokalemia, Hypomagnesemia Additional Instructions: Follow-up with your primary care provider. Begin taking a multivitamin. Drink plenty of water to stay hydrated. Try not to drink alcohol. If you become dizzy, have a headache or having nausea and vomiting or chest pain return emergency room. BILL CASTANEDA APRN Jun 07, 2021 11:07
[2021-06-07 11:14] LABS: AMPHETAMINE/METHAMPHETAMINE NEG (NEG); BARBITURATES NEG (NEG); BENZODIAZEPINES NEG (NEG); CANNABINOIDS NEG (NEG); COCAINE NEG (NEG); METHADONE NEG (NEG); OPIATES NEG (NEG); PHENCYCLIDINE NEG (NEG)
[2021-06-07 11:15] LABS: BACTERIA,URINE 0 /HPF (0-FEW); RBC,URINE 0 /HPF (0-2); WBC,URINE 0 /HPF (0-4)
[2021-06-07 11:15] LABS: CALCIUM 8.7 mg/dL (8.5-10.1); CREATININE 0.8 mg/dL (0.6-1.0); GFR 73.9; POTASSIUM 3.2 mmol/L (3.5-5.1)
[2021-06-07 11:19] LABS: ALBUMIN 3.9 g/dL (3.4-5.0); MAGNESIUM 1.6 mg/dL (1.8-2.4); TOTAL BILIRUBIN 0.2 mg/dL (0.2-1.0)
[2021-06-07] MEDS ORDERED: POTASSIUM CHLORIDE 20 MEQ TABLET.ER. PO ONE (11:30)
[2021-06-07] MEDS ORDERED: ONDANSETRON PF 4 MG/2 ML VIAL. IVP ONE (11:30)
[2021-06-07] MEDS ORDERED: MAGNESIUM SULFATE 2GM 50 ML IV ONE (11:30)
[2021-06-07 13:35] VITALS: BP 129/76
== END 2021-06-07 14:45 | disposition home or self-care (01) ==
LOC: ER 10:18
DX: E87.6 Hypokalemia (principal); E83.42 Hypomagnesemia; F10.229 Alcohol dependence with intoxication, unspecified; I10 Essential (primary) hypertension; F17.200 Nicotine dependence, unspecified, uncomplicated; E78.00 Pure hypercholesterolemia, unspecified; Z88.8 Allergy status to other drugs, medicaments and biological substances; Y90.8 Blood alcohol level of 240 mg/100 ml or more
CPT/HCPCS: 36415; 71045; 80053; 80307; 81001; 83690; 83735; 84484; 85025; 93005; 96365; 96366; 96367; 99285; G0480; J3411; J3475; J3490; J7030